=== PATIENT | female | born 1995 | race Caucasian/White ===

== ENCOUNTER → 2018-06-20 17:10 | Outpatient (CLI) | payer SELFPAY | PROVIDERS: Family Provider Pediatrics; PCP Pediatrics; Visit Provider Physician Assistant | DX: N39.0 Urinary tract infection, site not specified (principal) | CPT/HCPCS: 87077; 87086; 87186 ==

== ENCOUNTER → 2020-04-13 12:19 | Outpatient (CLI) | payer OTHER, MEDICAID, SELFPAY ==
--- NOTE | 2020-04-13 12:20 | DI.US.S_ITS ---
PROCEDURE: US OB <= 14 WEEKS FETUS INDICATIONS: Viability, early dating OUTSIDE/PRIOR DATING DATA: Last menstrual period (LMP): 02/16/20 . LMP-based estimated date of delivery (CHULA): 11/22/20 . First dating scan (date and location): 04/13/20 . Estimated date of delivery (CHULA) from first dating scan: 11/21/20 . TECHNIQUE: Real-time scanning was performed of the fetus and maternal pelvic organs, with image documentation. COMPARISON: None. FINDINGS: Embryo: Single living intrauterine fetus is present with a crown-rump length measuring 1.8 cm, 8 weeks 2 days. heart rate measures 163 beats per minute. Yolk sac visualized. Measurement variability in dating: +/- 4 weeks by LMP, +/- 7 days by mean sac diameter (use before 6 weeks gestation if crown-rump length not able to be measured), +/- 5 days by crown-rump length (up to 8 weeks 6 days gestation), +/- 7 days by crown-rump length (up to 13 weeks 6 days gestation). Maternal organs: Ovaries unremarkable except for a presumed left-sided corpus luteum . Limited images through the kidneys demonstrate no hydronephrosis. IMPRESSION: Single living intrauterine fetus with a gestational age measuring 8 weeks 2 days, CHULA of 11/21/20 which is concordant with LMP. Dictated by: Chris Pemberton M.D. on 04/13/2020 at 16:13 Approved by: Chris Pemberton M.D. on 04/13/2020 at 16:16
== END ==
PROVIDERS: Family Provider Pediatrics; Referring Provider Family Medicine; Visit Provider Family Medicine
DX: Z34.81 Encounter for supervision of other normal pregnancy, first trimester (principal); Z3A.08 8 weeks gestation of pregnancy
CPT/HCPCS: 76801

== ENCOUNTER → 2020-05-19 13:48 | Outpatient (CLI) | payer OTHER, MEDICAID, SELFPAY ==
[2020-05-19 14:15] LABS: Appearance Urine UA SL CLOUDY; Bilirubin Urine UA NEGATIVE (NEGATIVE); Color Urine UA YELLOW; Glucose Urine UA NEGATIVE (Negative); Ketones Urine UA NEGATIVE (NEGATIVE); Leukocyte Esterase Urine UA NEGATIVE (NEGATIVE); Nitrite Urine UA NEGATIVE (Negative); Occult Blood Urine UA NEGATIVE (Negative); Protein Urine UA NEGATIVE (Negative); Urobilinogen Urine UA 0.2 E.U./dL (0.2)
[2020-05-19 15:06] LABS: pH Urine UA 7.5 (4.5-8.0)
[2020-05-19 15:36] LABS: Add Manual Diff / Slide Review NO; Basophils Absolute Auto 0 /uL (0-100); Basophils Percent Auto 0.3 % (0-2); Eosinophils Absolute Auto 100 /uL (0-450); Eosinophils Percent Auto 0.6 % (2-4); Hematocrit 36.7 % (36-46); Hemoglobin 12.2 g/dL (12.0-16.0); Lymphocytes Absolute Auto 2500 /uL (1100-4500); Lymphocytes Percent Auto 26.3 % (25-40); Mean Corpuscular HGB Conc 33.2 % (30-36); Mean Corpuscular Hemoglobin 30.1 PG (26-34); Mean Corpuscular Volume 90.8 fL (80-100); Monocytes Absolute Auto 700 /uL (0-900); Monocytes Percent Auto 7.1 % (3-14); Neutrophils Absolute Auto 6300 /uL (1500-7000); Neutrophils Percent Auto 65.7 % (50-75); Platelet Count 280 X10^3/uL (150-400); Red Blood Cell Count 4.04 X10^6/uL (4.0-5.2); Red Cell Distribution Width 13.6 % (11.6-14.8); White Blood Cell Count 9.6 X10^3/uL (4.5-11.0)
[2020-05-20 06:35] LABS: Varicella IgG Antibody >4000 index (Immune >165)
[2020-05-20 10:07] LABS: RPR Screen Non Reactive (Non Reactive)
[2020-05-21 18:22] LABS: Hepatitis B Surface Antigen NEGATIVE s/c (NEGATIVE)
[2020-05-21 18:39] LABS: HIV 1 & 2 Ab/Ag 4th Gen Combo NEGATIVE (NEGATIVE); Hep C Virus Ab w/Reflex Quant NEGATIVE s/c (NEGATIVE)
== END ==
PROVIDERS: Family Provider Pediatrics; PCP Family Medicine; Referring Provider Family Medicine; Visit Provider Family Medicine
DX: Z34.01 Encounter for supervision of normal first pregnancy, first trimester (principal)
CPT/HCPCS: 36415; 80055; 81003; 86787; 86803; 86850; 86900; 86901; 87077; 87086; 87389

== ENCOUNTER → 2020-06-16 17:09 | Outpatient (CLI) | payer OTHER, MEDICAID, SELFPAY ==
[2020-06-19 20:36] LABS: AFP, Serum 32.5 ng/mL (.); Estriol, Free 1.19 ng/mL (.); Inhibin A, Dimeric 146.54 pg/mL (.); Inhibin A, MoM 0.82 (.); Maternal Ethnicity Caucasian (.); Maternal Weight 128 lbs (.); Number of Fetuses No (.); OSBR Risk 1 IN 10000 (.); Results Report (.); Test Results *Screen Negative* (.); hCG, MoM 0.28 (.); hCG, Serum 9757 mIU/mL (.)
== END ==
PROVIDERS: Family Provider Pediatrics; PCP Family Medicine; Referring Provider Family Medicine; Visit Provider Family Medicine
DX: Z34.90 Encounter for supervision of normal pregnancy, unspecified, unspecified trimester (principal); Z3A.17 17 weeks gestation of pregnancy
CPT/HCPCS: 36415; 82105; 82677; 84702; 86336

== ENCOUNTER → 2020-07-08 12:11 | Outpatient (CLI) | payer OTHER, MEDICAID, SELFPAY ==
--- NOTE | 2020-07-08 12:14 | DI.US.S_ITS ---
PROCEDURE: US OB >= 14 WEEKS FETUS INDICATIONS: ANATOMY OUTSIDE/PRIOR DATING DATA: Last menstrual period (LMP): 02/16/2020. LMP-based estimated date of delivery (CHULA): 11/22/2020 . First dating scan (date and location): 04/13/2020 . Estimated date of delivery (CHULA) from first dating scan: 11/21/2020 . TECHNIQUE: Real-time scanning was performed of the fetus, with image documentation and biometric measurements. Endovaginal scanning: No COMPARISON: [facility], OB <= 14 WEEKS FETUS, 04/13/2020, 12:30. FINDINGS: General: A single living intrauterine gestation is present. Presentation: Breech. Placenta: Placental position is posterior , without previa. Amniotic fluid index: 16.7 cm, normal range is 5-24 cm. heart rate: 150 beats per minute. Maternal cervical canal: 3.7 cm long. Normal lower limit is 2.5 cm. biometrics: Biparietal diameter: 20 weeks 4 days Head circumference: 21 weeks 1 day Abdominal circumference: 21 weeks 3 days Femur length: 20 weeks 1 day Estimated gestational age from initial scan: 20 weeks 4 days Composite gestational age from present scan: 20 weeks 6 days Estimated weight and percentile: 381 g; 68th percentile Measurement variability for biometric dating: +/- 7 days from 14 weeks to 15 weeks 6 days gestation, +/- 10 days from 16 weeks to 21 weeks 6 days gestation, +/- 2 weeks from 22 weeks to 27 weeks 6 days gestation, +/- 3 weeks for 28 weeks gestation or later. weight reference: 4500 g or EFW >90/95% is considered macrosomia or large for gestational age. EFW <10% is small for gestational age. EFW 5% or less is considered intra-uterine growth restriction. Anatomic survey: Neuro: Ventricles are non-dilated at less than 10 mm. Cisterna magna is normal at 3-11 mm. Cerebellum is normal in size and morphology. Nuchal skin fold: Normal at less than 6 mm between 14-21 weeks gestational age. Face: Nose and lips, facial profile are normal. Spine: No evidence for spina bifida. Heart: 4-chambered heart is present, with normal ventricular outflow tracts. Diaphragm: Diaphragm is intact. Stomach: Left-sided stomach is present. Kidneys: No hydronephrosis. Normal is less than 5 mm in 2nd trimester, less than 7 mm in 3rd trimester. Cord: 3-vessel cord has orthotopic insertion. Bladder: Normal in size. Extremities: All 4 extremities identified. IMPRESSION: 1. Single living IUP redemonstrated and interval growth is normal. 2. Normal anatomic survey. Dictated by: Odell South [facility] Interpreted: Chris Pemberton MD on 07/08/2020 at 13:46 Approved by: Chris Pemberton M.D. on 07/08/2020 at 16:11
== END ==
PROVIDERS: Family Provider Pediatrics; PCP Family Medicine; Referring Provider Family Medicine; Visit Provider Family Medicine
DX: Z36.89 Encounter for other specified antenatal screening (principal); Z3A.20 20 weeks gestation of pregnancy
CPT/HCPCS: 76811

== ENCOUNTER → 2020-09-08 12:42 | Outpatient (CLI) | payer OTHER, MEDICAID, SELFPAY ==
[2020-09-08 14:48] LABS: Hematocrit 31.8 % (36-46); Hemoglobin 10.6 g/dL (12.0-16.0)
[2020-09-08 15:06] LABS: GTT (PREG) 1 Hour PP 50gm Dose 118 mg/dL (76-139)
== END ==
PROVIDERS: Family Provider Pediatrics; PCP Family Medicine; Referring Provider Family Medicine; Visit Provider Family Medicine
DX: Z34.03 Encounter for supervision of normal first pregnancy, third trimester (principal); Z3A.29 29 weeks gestation of pregnancy
CPT/HCPCS: 36415; 82950; 85014; 85018

== ENCOUNTER 2020-10-23 02:41 | Inpatient (IN) | payer OTHER, MEDICAID, SELFPAY ==
--- NOTE | 2020-10-23 03:28 | PM.OBHP.1 ---
OB HPI Date/Time Date of admission: 10/23/20 Date Patient Seen: 10/23/20 Time Patient Seen: 03:10 History of Present Condition Chief complaint: EVALUATGION OF LABOR : 1 Para: 0 Estimated Date of Delivery: 11/22/20 Estimated Gestational Age (weeks): 35.5 Narrative: Nuvia Shultz is a 24 year old female @ [id number] by LMP and early US who presents for evaluation of PPROM labor. Was having mild contraction when she noticed a large gush of clear fluid at 0145. Contractions became stronger around 0230. Now breathing through strong contractions Q 2-3 minutes. Uncomplicated care w/ . Planning epidural. Mother and FOB present and supportive. History of Present care: good care, initiated at week # (11), number of visits (9) and pounds weight gain (35) Dating criteria: LMP confirmed by 1st trimester US Ultrasounds: normal mid trimester US Obstetrical complications: none Medical complications: none Preadmission Labs Blood type: A (+) positive -: Antibody screen: negative, GBS status: unknown, HBsAG: negative, HIV: negative and RPR/VDLR: negative -: Chlamydia screen: not detected and Gonorrhea screen: not detected -: Rubella: immune and Varicella: immune HCAB: negative PAP: Normal 1 hr GTT: 115 Evaluation Evaluation Baseline heart rate: 130 Variability: Moderate (11-25) monitor accelerations: Present Monitor Decelerations: Absent Uterine Contraction Intensity: Moderate Status: Category l Cervical dilation (cm): 3 Cervical effacement (%): 75 station: 0 Non-invasive Membranes Rupture Test: positive Comments: gross ROM, clear PFSH Medical History Exercise-induced asthma (~2001) Hematoma of left parietal scalp Shingles (~2015) Sprain of LCL (lateral collateral ligament) of knee Surgical History History of placement of ear tubes (~2004) History of removal of skin mole (~2015) Hx of tonsillectomy (~2012) Family History Mother Anxiety Father No problems noted. Grandmother Pulmonary fungal infection Smoker Grandfather Lung disease Grandmother Myocardial infarction Grandfather Diabetes mellitus Cancer Brother ADHD Social History marital status: unmarried,living together household members: significant other lives independently: Yes caregiver/support person: No housing: apartment pets and animals: Yes (1 cat, aware of precautions. ) education level: high school occupational status: employed current occupational exposures/hazards: No special cleo needs: No seatbelt use: always Smoking Status: Never smoker second hand exposure: No (sometimes) alcohol intake: former substance use type: does not use and marijuana during the past year weight has: remained stable well-balanced diet: rarely or never daily servings fruits/ve-1 caffeine: Yes (Currently has aversion. Aware of 1 cup advice. ) Type(s) of exercise: other and normal ROM and activity Meds Home Medications and Allergies Home Medications Medication Instructions Recorded Confirmed Type prenat.vits,alida,jzz-grqy-fiaee 1 tab PO DAILY 04/21/20 10/20/20 History Allergies Allergy/AdvReac Type Severity Reaction Status Date / Time No Known Drug Allergies Allergy Verified 10/20/20 14:08 Review of Systems Review of Systems ROS: Yes All systems reviewed with the patient and are negative except as otherwise documented Exam Vital Signs (past 8 hours): BP 131/74, HR 56bpm, T 36.8C Temporal Resp Effort & Inspection: normal respiratory effort Auscultation: clear to auscultation bilaterally Cardio Rate: regular rate Rhythm: regular rhythm Heart Sounds: S1 normal and S2 normal Presentation: vertex Objective Labs Result Diagrams: 10/23/20 03:30 Assessment and Plan Assessment and Plan Assessment and Plan narrative: A: nullipara PPROM x 2 hours without sx of infection GBS prophylaxis indicated Cat I FHR P: Admit, routine orders w/ GBS PCR. PCN for GBS unknown. Reassess in 4 hours or sooner, PRN. Time Spent with Patient Total time spent with greater than 50% in coordination of care (as documented) at patient's floor/unit and/or counseling patient:: 15-24 minutes
[2020-10-23 03:53] LABS: Add Manual Diff / Slide Review NO; Basophils Absolute Auto 200 /uL (0-100); Basophils Percent Auto 0.9 % (0-2); Eosinophils Absolute Auto 100 /uL (0-450); Eosinophils Percent Auto 0.6 % (2-4); Hematocrit 32.7 % (36-46); Hemoglobin 10.9 g/dL (12.0-16.0); Lymphocytes Absolute Auto 3900 /uL (1100-4500); Lymphocytes Percent Auto 18.8 % (25-40); Mean Corpuscular HGB Conc 33.2 % (30-36); Mean Corpuscular Hemoglobin 29.8 PG (26-34); Mean Corpuscular Volume 89.8 fL (80-100); Monocytes Absolute Auto 1900 /uL (0-900); Neutrophils Absolute Auto 14800 /uL (1500-7000); Neutrophils Percent Auto 70.7 % (50-75); Platelet Count 378 X10^3/uL (150-400); Red Blood Cell Count 3.64 X10^6/uL (4.0-5.2); Red Cell Distribution Width 13.2 % (11.6-14.8)
[2020-10-23 04:21] LABS: COVID19 - ADMIT (NP swab/PCR) Negative (Negative)
[2020-10-23 04:42] VITALS: BP 123/68
[2020-10-23] MEDS: PENICILLIN G POTASSIUM 5,000,000 UNIT in DEXTROSE 5% IN WATER 250 ML IV (04:54)
--- NOTE | 2020-10-23 05:21 | PM.OBPNLAB ---
Date/Time Date Patient Seen: 10/23/20 Time Patient Seen: 05:10 Pain Control Pain control: epidural Pelvic Exam Dilation (cm): 4 Effacement (%): 90 station: -1 Amniotic membrane status: Leaking Comments: footling breech Contractions Pitocin rate (mU/min): 0 Contraction intensity: Moderate Status status: Category l Heart Rate Baseline: 150 Monitor Accelerations: Present Monitor Decelerations: Absent Monitor Variability: Moderate Assessment and Plan Assessment: active labor and other (footling breech) Plan: (breech) Comments: Called patient's primary provider (), [facility] (),[facility] () and OR crew for primary for breech w/ 60 minute timeline indicated.
--- NOTE | 2020-10-23 05:50 | PM.OBPNLAB ---
Date/Time Date Patient Seen: 10/23/20 Time Patient Seen: 05:50 Pain Control Pain control: tolerating well and epidural Comments: Denies pain with epidural. Found to be footling breech on last exam. Pelvic Exam Dilation (cm): 5 Effacement (%): 75 station: 0 Amniotic membrane status: Leaking Contractions Contraction frequency (min): 2 Contraction intensity: Moderate Status status: Category l Heart Rate Baseline: 130 Monitor Accelerations: Present Monitor Decelerations: Absent Monitor Variability: Moderate Comments: Breech confirmed with bedside US Assessment and Plan Plan: Comments: 24 year old at 35+5 with SROM found to be breech. Discussed need for . Risks and benefits reviewed including risk of bleeding, infection, injury to surrounding organs. Consent signed. She would accept a blood transfusion if needed. Will give 2g Ancef prior to surgery.
--- NOTE | 2020-10-23 05:55 | PM.PREOP ---
Pre-operative Note COVID-19 COVID-19 status: Negative Result date/Date tested (Pos, Neg/Pending): 10/23/20 Interval Note History & Physical reviewed/Exam performed by Physician: Yes Changes to H&P: No
[2020-10-23 06:00] LABS: Strep Grp B PCR NEG for Grp B Strep
[2020-10-23] MEDS: CEFAZOLIN 1 GM VIAL 2 GM IV (06:00)
--- NOTE | 2020-10-23 06:42 | SUR.OPER ---
Supine on Padded OR bed, head on pillow, safety belt at thigh, arms secured on padded arm boards at <90 degrees abduction. Bump under right buttock. Legs uncrossed with pillow under knees, gel pad to heels, tape over blanket to lower legs.
[2020-10-23 07:15] VITALS: BP 109/49; PULSE 65; RESP 19; O2SAT 98
[2020-10-23 07:19] VITALS: BP 113/72; PULSE 78; RESP 22; TEMP 37.1; O2SAT 99
[2020-10-23 07:21] VITALS: BP 107/49; PULSE 55; RESP 14; O2SAT 99
--- NOTE | 2020-10-23 07:27 | PM.OBCS.1 ---
Operative Date/Time/Diagnoses Date of procedure: 10/23/20 Time of procedure: 07:27 Pre-op diagnosis: Breech presentation in labor 35 weeks of Post-op diagnosis: same Procedure & Clinicians Procedure: Primary low transverse section Same procedure as scheduled: Yes Indications: Breech presentation in labor 35 weeks gestation Surgeon: Zulema Thompson Cigar Making Machine Operator: Abbey Edgar Reason for Cigar Making Machine Operator: Dr. Edgar was present throughout the case to assist with retraction, suction, delivery of breech and suturing. Anesthesia Type: Epidural Operative Notes Findings: Complete breech male , normal uterus, tubes and ovaries Closure Type: primary Specimen(s): cord blood Applied: Catheter Estimated Blood Loss (mL): 400 Procedure in detail: The patient was taken to the operating room. She was then placed in the dorsal supine position with a leftward tilt. She was prepped and draped in the usual sterile fashion. A timeout was performed. After epidural analgesia was found to be adequate, a Pfannenstiel skin incision was made 2 fingerbreadths above the pubic symphysis and carried through to the underlying layer fascia. The fascia was nicked in the midline and the incision extended bilaterally with Sifuentes scissors. The superior aspect of the fascial incision was grasped with a Itz clamps by Dr. Thompson and Dr. Edgar, elevated, and the underlying rectus muscles dissected off sharply and bluntly as well as with cautery. Attention was then turned to the inferior aspect of this incision which in a similar fashion was grasped with a Itz clamps by both physicians, elevated, and the underlying rectus muscles dissected off sharply and bluntly. The rectus muscles were in the midline. The peritoneum was identified, grasped between 2 hemostats, and entered sharply with the Metzenbaum scissors. This incision was extended superiorly and inferiorly with good visualization of the bladder. The bladder blade was inserted. The vesicouterine peritoneum was identified, grasped with the pickup, and entered sharply with the Metzenbaum scissors. This incision was extended bilaterally, and the bladder flap was created digitally. The bladder blade was reinserted. The lower uterine segment was incised in a transverse fashion with the scalpel. Upon entering the amniotic sac there was a small amount clear amniotic fluid. Dr. Edgar delivered the body followed by the head with difficulty. The cord was double clamped and cut. The infant was handed off to waiting RN and RT. The placenta was delivered manually. The uterus was cleared of all clots and debris. The uterine incision was repaired with #1 chromic in a running interlocking fashion and a second layer the same suture was used for an imbricating layer. Hemostasis was achieved. The tubes and ovaries were examined and were found to be normal. The gutters were cleared of all clots and debris. The bladder flap was reapproximated using 2-0 Vicryl in a running fashion. The parietal peritoneum was closed using 2-0 Vicryl in a running fashion. The fascia was reapproximated using 0 Vicryl in a running fashion, Dr. Edgar doing the left right side and Dr. Thompson doing the left. Subcutaneous layer was copiously irrigated with warm normal saline. 3 simple interrupted sutures of 3-0 Vicryl were placed to reapproximate the subcutaneous layer. The skin was closed with 4-0 undyed Vicryl in a subcuticular fashion. Steri-Strips were placed. An Aquacel dressing was placed. The uterus was expressed of a small amount of old blood. Sponge, lap, and instrument counts were correct. The patient tolerated the procedure well, and was taken to PACU in stable condition. Complications: none Baby 1: Gender: Male Presentation: breech Details: complete Cord Vessel Description: 3 Vessels score (1 min): 7 score (5 min): 7 score (10 min): 9 Post-operative Condition: stable Disposition: PACU Aftercare: routine postop
[2020-10-23 07:30] VITALS: BP 126/56; PULSE 68; RESP 18; O2SAT 98
[2020-10-23] MEDS: KETOROLAC 30 MG/ML VIAL IM (07:36)
[2020-10-23] MEDS: LACTATED RINGERS 1,000 ML 100 ML IV (08:00)
--- NOTE | 2020-10-23 08:00 | SUR.PHASEI ---
Pt arrived to PACU drowsy patent airway. Pt had shakes bare hugger and warm blankets applied, shakes resolved with treatment given. Pt with no pain. No nausea. Report called to Sri. Dr. Colon back to bedside, verbal order for torodol obtained, med given IV as ordered. Pt left with Sri in stable condition. Bed down, locked SCD's on and call suarez in reach.
[2020-10-23] MEDS: KETOROLAC 30 MG/ML VIAL IV ×2 (13:42→19:55)
[2020-10-23] MEDS: LANOLIN OINT 7 GM 1 APPLIC TOP (17:39)
[2020-10-23 17:40] VITALS: TEMP 36.6
[2020-10-23] MEDS: OXYCODONE IR 5 MG TABLET PO ×2 (17:40→23:58)
[2020-10-24 06:27] LABS: Add Manual Diff / Slide Review NO; Basophils Absolute Auto 100 /uL (0-100); Basophils Percent Auto 0.5 % (0-2); Eosinophils Absolute Auto 100 /uL (0-450); Eosinophils Percent Auto 0.7 % (2-4); Hematocrit 29.2 % (36-46); Hemoglobin 9.8 g/dL (12.0-16.0); Lymphocytes Absolute Auto 1800 /uL (1100-4500); Lymphocytes Percent Auto 14.8 % (25-40); Mean Corpuscular HGB Conc 33.5 % (30-36); Mean Corpuscular Hemoglobin 29.7 PG (26-34); Mean Corpuscular Volume 88.9 fL (80-100); Monocytes Absolute Auto 800 /uL (0-900); Monocytes Percent Auto 6.5 % (3-14); Neutrophils Absolute Auto 9300 /uL (1500-7000); Neutrophils Percent Auto 77.5 % (50-75); Platelet Count 273 X10^3/uL (150-400); Red Blood Cell Count 3.28 X10^6/uL (4.0-5.2); Red Cell Distribution Width 13.4 % (11.6-14.8); White Blood Cell Count 11.9 X10^3/uL (4.5-11.0)
--- NOTE | 2020-10-24 08:58 | PM.OBPN.1 ---
Subjective - OB Subjective Patient comments: pain well controlled, incisional pain and tolerating diet baby status: doing well and nursing well [place] feeding status: exclusively breast feeding Date Patient Seen: 10/24/20 Time Patient Seen: 08:40 Interval history: Patient denies complaints. She has some incisional pain but ibuprofen and oxycodone working well. She is ambulating and voiding. Not yet passing flatus but tolerating a diet. Vaginal bleeding is light. is going well. Exam Vital Signs (past 8 hours): Oxygen Delivery Method Room Air Temperature 36.4? blood pressure 118/87 heart rate 68 Narrative Exam Narrative: General: Awake and alert, no acute distress. HEENT: NCAT, EOMI, moist oral mucosa CV: Regular rate and rhythm, no murmurs, rubs or gallops Lungs: CTAB, no wheezes, rales, or rhonchi Abdomen: Aquacel dressing intact with moderate dark drainage. Soft, nontender; bowel tones active; uterus firm 1 cm below umbilicus. Extremities: Warm, trace edema bilaterally, 2+ pedal pulses bilaterally Objective Labs Result Diagrams: 10/24/20 06:10 Labs: Laboratory Results - last 24 hr 10/24/20 06:10 WBC 11.9 H RBC 3.28 L Hgb 9.8 L Hct 29.2 L MCV 88.9 MCH 29.7 MCHC 33.5 RDW 13.4 Plt Count 273 Neut % (Auto) 77.5 H Lymph % (Auto) 14.8 L Hickman % (Auto) 6.5 Eos % (Auto) 0.7 L Baso % (Auto) 0.5 Neut # (Auto) 9300 H Lymph # (Auto) 1800 Hickman # (Auto) 800 Eos # (Auto) 100 Baso # (Auto) 100 Assessment & Plan Assessment and Plan (1) Status post : Status: Acute (2) 35 weeks gestation of : Status: Acute (3) Breech presentation of fetus: Status: Acute Plan day: 1 plan OB: routine postop care Comments: Patient is a 24-year-old G1 now P1 after primary for breech presentation at 35 weeks and 5 days gestation. Patient presented in active labor and was found to be breech. She is doing well postoperatively without complications. Breast-feeding well. May discharge as early as tomorrow depending on how her is doing. Time Spent With Patient Time: Total time spent is greater than 50% in coordination of care (as documented) at patient's floor/unit and/or counseling patient: Time with patient: less than 15 minutes
[2020-10-24] MEDS: ACETAMINOPHEN 325 MG TABLET 650 MG PO ×2 (13:11→20:06)
[2020-10-24] MEDS: DOCUSATE 250 MG CAPSULE PO (13:11)
[2020-10-24] MEDS: PRENATAL VIT,CALC/IRON/FOLIC 1 TABLET 1 TAB PO (13:11)
[2020-10-24] MEDS: IBUPROFEN 600 MG TABLET PO ×2 (13:12→20:05)
[2020-10-25] MEDS: IBUPROFEN 600 MG TABLET PO ×2 (02:08→14:03)
[2020-10-25] MEDS: ACETAMINOPHEN 325 MG TABLET 650 MG PO (02:08)
--- NOTE | 2020-10-25 09:42 | PM.OBPN.1 ---
Subjective - OB Subjective Patient comments: no complaints, pain well controlled, tolerating diet and flatus present baby status: doing well [place] feeding status: exclusively breast feeding Date Patient Seen: 10/25/20 Time Patient Seen: 09:42 Interval history: No complaints. She is moving around better today. She is eating, ambulating, passing flatus and voiding. Vaginal bleeding is light. Pain controlled with ibuprofen and Tylenol. is going okay though does not want to stay latched for very long. has lost an excessive amount of weight. Exam Vital Signs (past 8 hours): Oxygen Delivery Method Room Air Narrative Exam Narrative: General: Awake and alert, no acute distress. HEENT: NCAT, EOMI, moist oral mucosa CV: Regular rate and rhythm, no murmurs, rubs or gallops Lungs: CTAB, no wheezes, rales, or rhonchi Abdomen: Aquacel dressing intact with moderate dark drainage. Soft, nontender; bowel tones active; uterus firm 1 cm below umbilicus. Extremities: Warm, no edema, 2+ pedal pulses bilaterally Objective Labs Result Diagrams: 10/24/20 06:10 Assessment & Plan Assessment and Plan (1) Status post : Status: Acute (2) 35 weeks gestation of : Status: Acute (3) Breech presentation of fetus: Status: Acute Plan day: 2 plan OB: routine care Comments: Patient is now postop day 2 after primary for breech presentation in labor. She is doing quite well. She and baby may stay in the hospital another day to work on feeding in her pre term period if his weight is increasing by the end of the day today, then they may discharge home and follow up in clinic tomorrow. Time Spent With Patient Time: Total time spent is greater than 50% in coordination of care (as documented) at patient's floor/unit and/or counseling patient: Time with patient: 15-24 minutes
[2020-10-25] MEDS: PRENATAL VIT,CALC/IRON/FOLIC 1 TABLET 1 TAB PO (14:03)
[2020-10-25] MEDS: DOCUSATE 250 MG CAPSULE PO (14:03)
[2020-10-26] MEDS: ACETAMINOPHEN 325 MG TABLET 650 MG PO ×2 (00:29→08:38)
[2020-10-26] MEDS: IBUPROFEN 600 MG TABLET PO ×2 (00:29→08:38)
[2020-10-26 07:22] VITALS: BP 126/56; PULSE 68; RESP 18; TEMP 36.6
--- NOTE | 2020-10-26 07:59 | PM.OBDS.1 ---
Discharge Providers Provider Date of admission: 10/23/20 02:41 Discharge Date: 10/26/20 Primary care physician: Zulema Thompson DO Consults: 10/23/20 07:45 Consult to Strategic Debriefing Specialist Routine Comment: Discharge provider: Zulema Thompson DO Summary Hospital Course Date Patient Seen: 10/26/20 Time Patient Seen: 07:45 Diagnoses: 35 weeks of Breech presentation Primary Hospital Course: Patient is a 25-year-old G1 now P1 after primary 10/23/20 at 35 weeks and 5 days gestation. Patient presented with spontaneous rupture of membranes and was found to have a breech fetus. She was taken for primary . course was uncomplicated. Patient was ambulating, voiding and passing flatus. Lochia light. Pain controlled with primarily ibuprofen and rare oxycodone. She was and supplementing with formula. infant was doing well, especially given . Patient will follow-up in 1 week for Aquacel dressing removal. Patient advised to call for fevers, severe pain or bleeding through more than a pad an hour. Peripartum Data Delivery Method: Section complications: none [place] 1: Gender: Male Disposition of : home Discharge Diagnosis (1) Status post : Status: Acute (2) 35 weeks gestation of : Status: Acute (3) Breech presentation of fetus: Status: Acute Status at Discharge Cognitive/behavioral status at discharge: at baseline, oriented Overall status at discharge: patient is progressing back to baseline Time Spent with Patient Time attestation: Total time spent providing and/or coordinating discharge services: Time spent: Less than 30 minutes Objective Labs Result Diagrams: 10/24/20 06:10 Exam Vital Signs (past 8 hours): Oxygen Delivery Method Room Air Temperature 97.2? blood pressure 123/81 heart rate 65 Narrative Exam Narrative: General: Awake and alert, no acute distress. HEENT: NCAT, EOMI, moist oral mucosa CV: Regular rate and rhythm, no murmurs, rubs or gallops Lungs: CTAB, no wheezes, rales, or rhonchi Abdomen: Aquacel dressing intact with moderate dark drainage. Soft, nontender; bowel tones active; uterus firm 1 cm below umbilicus. Extremities: Warm, no edema, 2+ pedal pulses bilaterally Discharge Plan Discharge Plan Patient Disposition: Home Discharge orders & Medications Prescriptions: New docusate sodium 250 mg Capsule 250 mg PO DAILY Qty: 30 RF: 0 ibuprofen 600 mg Tablet 600 mg PO Q6H PRN (Reason: Fever/Mild Pain (1-3)) Qty: 30 RF: 0 oxycodone 5 mg Tablet 5 mg PO Q4H PRN (Reason: Pain, Moderate (4-6)) Qty: 15 RF: 0 Discontinued prenat.vits,alida,[id number] Tablet 1 tab PO DAILY RF: 0 Follow up/Referrals: Zulema Thompson DO [Primary Care Provider] - 10/30/20 1:30 pm Visit Report/Discharge Packet Visit Report Forms: Patient Portal/API, Stroke Signs & Symptoms Discharge Data Primary Care Provider: Zulema Thompson
[2020-10-26] MEDS: PRENATAL VIT,CALC/IRON/FOLIC 1 TABLET 1 TAB PO (08:38)
[2020-10-26] MEDS: DOCUSATE 250 MG CAPSULE PO (08:39)
== END 2020-10-26 11:15 | disposition home or self-care (01) | DRG 786 ==
PROVIDERS: Admitting Provider Nurse Practitioner Obstetrics & Gynecology; Family Provider Pediatrics; PCP Family Medicine; Referring Provider Nurse Practitioner Obstetrics & Gynecology; Visit Provider Family Medicine
PROC: 10D00Z1 Extraction of Products of Conception, Low, Open Approach (ICD-10-PCS; CPT 59514; principal; 2020-10-23 06:15)
DX: O64.1XX0 Obstructed labor due to breech presentation, not applicable or unspecified (principal); O60.14X0 Preterm labor third trimester with preterm delivery third trimester, not applicable or unspecified; Z3A.35 35 weeks gestation of pregnancy; Z37.0 Single live birth; Z20.822 Contact with and (suspected) exposure to COVID-19
CPT/HCPCS: 01967; 01968; 36415; 59050; 59514; 76815; 85025; 86850; 86900; 86901; 87081; 87635; 87653; C9803; G0379; J0690; J1885; J2274; J2405; J2540; J2590; J2765; J3010